=== PATIENT | female | born 1990 | race Caucasian/White ===

== ENCOUNTER 2019-05-27 09:13 | Emergency (ER) | payer MEDICAID ==
[~2019-05-27] VITALS: Ht 165.1 cm; Wt 61.5 kg
[2019-05-27 09:24] VITALS: BP 110/69
[2019-05-27] MEDS ORDERED: PRED20TA PO (09:32)
[2019-05-27] MEDS ORDERED: AZIT250T83 PO (09:32)
== END 2019-05-27 09:47 | disposition home or self-care (01) ==
LOC: ER 09:13
DX: J32.9 Chronic sinusitis, unspecified (principal); H92.03 Otalgia, bilateral; F17.200 Nicotine dependence, unspecified, uncomplicated; F12.90 Cannabis use, unspecified, uncomplicated; Z79.899 Other long term (current) drug therapy
CPT/HCPCS: 99283